=== PATIENT | female | born 1935 | race Caucasian/White ===

== ENCOUNTER → 2016-09-19 | Outpatient (CLI) | payer MEDICARE | END | disposition home or self-care (01) | LOC: PCVCCLINIC 12:19 | PROVIDERS: ATTEND Internal Medicine | DX: I25.10 Atherosclerotic heart disease of native coronary artery without angina pectoris (principal); E78.00 Pure hypercholesterolemia, unspecified | CPT/HCPCS: 80061 ==

== ENCOUNTER → 2016-11-30 | Outpatient (CLI) | payer MEDICARE | END | disposition home or self-care (01) | LOC: PCVCCLINIC 09:40 | PROVIDERS: ATTEND Internal Medicine | DX: I25.10 Atherosclerotic heart disease of native coronary artery without angina pectoris (principal); I50.9 Heart failure, unspecified; I42.9 Cardiomyopathy, unspecified; I48.91 Unspecified atrial fibrillation; E78.5 Hyperlipidemia, unspecified; Z79.01 Long term (current) use of anticoagulants | CPT/HCPCS: 80061; 93005; G0463 ==

== ENCOUNTER → 2017-12-08 | Outpatient (CLI) | payer MEDICARE | END | disposition home or self-care (01) | LOC: PCVCIMAG 08:45 | DX: I65.23 Occlusion and stenosis of bilateral carotid arteries (principal); I25.10 Atherosclerotic heart disease of native coronary artery without angina pectoris; I48.2 Chronic atrial fibrillation; E78.5 Hyperlipidemia, unspecified; F17.210 Nicotine dependence, cigarettes, uncomplicated; Z79.899 Other long term (current) drug therapy; Z98.890 Other specified postprocedural states | CPT/HCPCS: 80061; 93005; 93880; G0463 ==

== ENCOUNTER → 2018-06-12 | Outpatient (CLI) | payer MEDICARE | END | disposition home or self-care (01) | LOC: PCVCCLINIC 10:31 | PROVIDERS: ATTEND Internal Medicine | DX: I25.10 Atherosclerotic heart disease of native coronary artery without angina pectoris (principal); I48.2 Chronic atrial fibrillation; I65.23 Occlusion and stenosis of bilateral carotid arteries; E78.5 Hyperlipidemia, unspecified; I71.4 Abdominal aortic aneurysm, without rupture; F17.210 Nicotine dependence, cigarettes, uncomplicated; Z98.890 Other specified postprocedural states | CPT/HCPCS: 80061; 93005; G0463 ==

== ENCOUNTER → 2018-06-14 | Outpatient (CLI) | payer MEDICARE ==
--- NOTE | 2018-06-14 12:43 | PCVCIMAG ---
EXAM: AORTOILIAC DUPLEX INDICATION: Peripheral arterial disease FINDINGS: AORTA: Suprarenal aorta measures maximum diameter of 2.9 cm. There is a fusiform infrarenal aortic aneurysm. The infrarenal aorta measures maximum diameter of 4.9 x 5.5 cm. No aortic stenosis. RIGHT COMMON ILIAC ARTERY: Maximum diameter is 1.2 cm. No significant stenosis. RIGHT EXTERNAL ILIAC ARTERY: No significant stenosis. LEFT COMMON ILIAC ARTERY: Maximum diameter is 1.4 cm. No significant stenosis. LEFT EXTERNAL ILIAC ARTERY: No significant stenosis. IMPRESSION: 5.5 cm infrarenal abdominal aortic aneurysm. LOC:[id number]
== END | disposition home or self-care (01) ==
LOC: PCVCIMAG 11:31
PROVIDERS: ATTEND Internal Medicine
DX: I71.4 Abdominal aortic aneurysm, without rupture (principal); I73.9 Peripheral vascular disease, unspecified
CPT/HCPCS: 93978

== ENCOUNTER → 2018-09-11 | Outpatient (CLI) | payer MEDICARE ==
--- NOTE | 2018-09-11 09:56 | PCVCIMAG ---
EXAM: AORTOILIAC DUPLEX INDICATION: Abdominal aortic aneurysm. FINDINGS: AORTA: Suprarenal aorta measures maximum diameter of 2.8 cm. There is a fusiform infrarenal aortic aneurysm. The infrarenal aorta measures maximum diameter of 5.2 x 5.3 cm. No aortic stenosis. RIGHT COMMON ILIAC ARTERY: Maximum diameter is 1.4 cm. No significant stenosis. RIGHT EXTERNAL ILIAC ARTERY: No significant stenosis. LEFT COMMON ILIAC ARTERY: Maximum diameter is 1.3 cm. No significant stenosis. LEFT EXTERNAL ILIAC ARTERY: No significant stenosis. IMPRESSION: 5.3 cm infrarenal abdominal aortic aneurysm is similar to May 2018 study. Further evaluation with CTA of the abdomen and pelvis is suggested. Incidental note is made of mild to moderate amount of perihepatic ascites with question of nodular hepatic contour raising concern for underlying liver disease. Please correlate clinically. LOC:[id number]
== END | disposition home or self-care (01) ==
LOC: PCVCIMAG 08:37
PROVIDERS: ATTEND Internal Medicine
DX: I71.4 Abdominal aortic aneurysm, without rupture (principal)
CPT/HCPCS: 93978

== ENCOUNTER → 2018-09-14 | Outpatient (CLI) | payer MEDICARE ==
[~2018-09-14] MED LIST: REGADENOSON 0.4 MG/5 ML DISP.SYRIN. IV ONE
--- NOTE | 2018-09-14 17:12 | PCVCIMAG ---
APPROVED REPORT Imaging Protocol: Rest Tc-99m/Stress Tc-99m 1 day Study performed: 09/14/2018 09:28:29 Indication: Atrial Fibrillation, CAD Patient Location: Out-Patient Stress Nurse: Kimberli Arias RN, Leisa Agosto RN [place] Tech:Lilly Orlando [facility] Ht: 5 ft 6 in Wt: 139 lbs BSA: 1.71 m2 HR: 103 bpm BP: 113/65 mmHg BMI: 22.4 Rhythm: Atrial Fibrillation Medical History Medical History: HTN, Hyperlipidemia, CKD, CVD, Current Smoker, Atrial Fibrillation Medications: Atenolol, Cardeizem, Crestor, Demadex, Eliquis Allergies: Many - none relevant to this exam Cardiac Risk Factors: Age Previous Cardiac Procedures: CABG Pretest Chest Pain Characteristics: No chest pain Exercise History: Physically active Resting Data Rest SPECT myocardial perfusion imaging was performed in supine position 45 minutes following the intravenous injection of 10.3 mCi of Tc-99m Sestamibi. Time of rest injection: 0900 Date: 09/14/2018 Administration Route: IV Administration Site: Right Arm Pharmacologic Stress Pharmacologic stress test was performed by injecting Regadenoson 0.4 mg IV push over 10-15 seconds immediately followed by the intravenous injection of 33.4 mCi of Tc-99m Sestamibi. Time of stress injection: 1030 Date: 09/14/2018 Administration Route: IV Administration Site: Right Arm Heart Rate at time of stress injection: 45 bpm. The images were gated to evaluate regional wall motion and calculate left ventricular ejection fraction. Stress Test Details Stress Test: Pharmacologic stress testing performed using 0.4 mg of regadenoson per 5 mL given IV over 10 seconds. Reason for pharmacologic stress test: back and hip issues. HRMax Heart Rate (APMHR): 138 bpm Resting HR: 103 bpmTarget HR (85% APMHR): 117 bpm Max HR Achieved: 113 bpm % of APMHR: 81 Recovery HR: 108 bpm BP Resting BP: 113/65 mmHg Max BP: 125/72 mmHg Recovery BP: 110/661 mmHg ECG Resting ECG: Atrial Fibrillation Stress ECG: Atrial Fibrillation ST Change: None Maximum ST Deviation: 0 mm Arrhythmia: Atrial fibrillation Recovery ECG: Atrial Fibrillation Recovery ST Change: None Recovery ST Deviation: 0 mm Recovery Arrhythmia: Atrial Fibrillation Clinical Reason for Termination: Completed protocol Stress Symptoms: Abdominal discomfort Exercise duration: 0 min 55 sec Symptoms resolved with caffeine. Stress ECG Conclusion ECG: Non-ischemic Clinical: Non-ischemic Study Quality Study: Good Study Data Post stress, the left ventricular ejection was 48%.. SSS: 9 SRS: 1 SDS: 8 TID = 1.06. 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 Post stress, the left ventricular ejection was 48%. Interpreted by: Maurilio Harry MD Electronically Approved: 09/14/2018 13:32:24 <Conclusion> ECG: Non-ischemic Clinical: Non-ischemic
== END | disposition home or self-care (01) ==
LOC: PCVCIMAG 08:49
PROVIDERS: ATTEND Internal Medicine
DX: I25.10 Atherosclerotic heart disease of native coronary artery without angina pectoris (principal); I48.2 Chronic atrial fibrillation; Q21.1 Atrial septal defect; I65.23 Occlusion and stenosis of bilateral carotid arteries; E78.5 Hyperlipidemia, unspecified; I71.4 Abdominal aortic aneurysm, without rupture; E78.00 Pure hypercholesterolemia, unspecified; K76.9 Liver disease, unspecified; F17.210 Nicotine dependence, cigarettes, uncomplicated; Z98.890 Other specified postprocedural states
CPT/HCPCS: 78452; 93005; 93017; A9500; G0463; J2785

== ENCOUNTER → 2018-09-21 | Outpatient (CLI) | payer MEDICARE | END | disposition home or self-care (01) | LOC: PCVCCLINIC 11:12 | PROVIDERS: ATTEND Internal Medicine | DX: I25.10 Atherosclerotic heart disease of native coronary artery without angina pectoris (principal); I48.2 Chronic atrial fibrillation; E78.5 Hyperlipidemia, unspecified; E78.00 Pure hypercholesterolemia, unspecified; F17.200 Nicotine dependence, unspecified, uncomplicated; Z98.890 Other specified postprocedural states | CPT/HCPCS: 36415 ==

== ENCOUNTER → 2018-10-15 | Outpatient (CLI) | payer MEDICARE ==
[~2018-10-15] MED LIST changes: +DIAZEPAM 10 MG TABLET. ONE; +HEPARIN for ARTERIAL LINE 1,500 ML ONE; +IOHEXOL 300 MG/ML 100ML VIAL. ONE; +IOHEXOL 350 MG/ML 100 ML VIAL. ONE; +IV NORMAL SALINE 1000ML BAG 1,000 ML ONE; +LIDOCAINE 1%/EPI 1:100,000 20 ML VIAL. ONE; +MIDAZOLAM HCL/PF 2 MG/2 ML VIAL. ONE; -REGADENOSON 0.4 MG/5 ML DISP.SYRIN. IV ONE; +fentaNYL PF VIAL 100 MCG/2 ML VIAL ONE
--- NOTE | 2018-10-15 15:06 | PCVCINTER ---
APPROVED REPORT Study performed: 10/15/2018 12:05:48 Patient Details Patient Status: Out-Patient Room #: 2 The patient is a 83 year-old Female Event Personnel Suyapa Balderas MD, Brandon Trejo RT(R)(), Jordan Simpson RT(R), Gabriel Ambrocio RN Risk Factors Arterial HypertensionDysplipidemia (Type: 0), Cerebrovascular Disease, Hypercholesterolemia, Last Creatanine 0.8Tobacco History (Current/Recent(w/in 1 year)) Previous Procedures/Diagnoses Previous CABG, Previous CHFPrevious Vascular Surgery, CAD, LV dysfunction, Liver disease, Cerebrovascular disease, Arrhythmias - Supraventricular tachycardias->Permanent AF Procedure Narrative A 6F sheath was inserted into the right femoral artery. Coronary angiography was performed using coronary diagnostic catheters. The right coronary system was accessed and visualized with a JR4 catheter. The left coronary system was accessed and visualized with a JL4 catheter. The left ventricle was accessed and visualized with a Angled Pigtail catheter. Left ventricular/Aortic Valve gradient assessed via catheter pullback. Left ventriculogram was performed in STRAUSS projection. Hemostasis was obtained with manual pressure following sheath removal without any complications. The patient tolerated the procedure well and there were no complications associated with the procedure. There was no hematoma. Coronary Angiography The patient's coronary anatomy is right dominant. Diagnostic Cath Left MainMild 10-20% proximal left main plaquing DFB24-64% proximal LAD stenosis Mild distal LAD plaquing. 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 Right Wiztldeq92% proximal right coronary stenosis. Mid vessel right coronary artery occlusion R PDAWidely patent vein graft to the posterior descending branch. Both proximal and distal anastomotic sites were widely patent. RPLVOccluded posterolateral branch with left to right collateralization. Occluded vein graft to the posterolateral branch Left Ventriculography The left ventricle is mildly dilated in size with abnormal contractility. The left ventricular ejection fraction is estimated to be 45-50%. Left ventricular wall motion abnormalities are present. There is no mitral insufficiency. Inferobasal aneurysm. Mild left ventricular dysfunction. Hemodynamics The aortic pressure is 106/57 mmHg with a mean of mmHg. The left ventricular pressure is 106/13 mmHg with a mean of 16 mmHg. Conclusion 1. Mild left ventricular dysfunction with inferobasal aneurysm 2. Severe two-vessel coronary disease. 3. Severe 85-90% proximal LAD stenosis. 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 Mild nondominant circumflex disease. 5. Severe right coronary disease with widely patent vein graft to the posterior descending branch. 6. Occluded posterolateral branch with [id number] collateralization. Occluded vein graft to the posterolateral branch
--- NOTE | 2018-10-15 18:32 | PCVCINTER ---
EXAM: 1. AORTOGRAM AND BILATERAL ILIOFEMORAL ANGIOGRAPHY 2. BILATERAL RENAL ANGIOGRAPHY 3. COMPLETE MESENTERIC ANGIOGRAPHY 4. INFERIOR MESENTERIC ARTERY COIL EMBOLIZATION INDICATION: Abdominal aortic aneurysm. Pre stent graft operative planning. Hypertension. Renal atherosclerosis. PROCEDURE: Procedure and risks of the procedures listed above were discussed with the patient and consent obtained. Risks including but not limited to bleeding, infection, stroke, vascular injury, neurologic injury, embolization, allergic reactions, bowel ischemia requiring resection, and contrast-induced nephropathy requiring dialysis were discussed as appropriate and consent obtained. Patient was placed on the angiography table. IV conscious sedation was used throughout procedure with appropriate monitoring from 10:30 AM through 12:00 PM. The right groin was prepped and draped in the normal sterile fashion. Ultrasound was used to interrogate the right groin and demonstrate the right common femoral artery. An ultrasound image was saved. Under ultrasound guidance a 21 gauge needle was used to gain access into the right common femoral artery and a 5F vascular sheath was placed. Catheter was placed into the suprarenal abdominal aorta and abdominal aortic angiogram performed. Catheter was placed into the distal abdominal aorta and bilateral iliofemoral angiography performed. Catheter was placed into the right renal arteries and right renal angiograms performed. Catheter was placed into the left renal arteries and left renal angiograms performed. Catheter was placed into the celiac axis and celiac angiogram performed. Catheter was placed in the superior mesenteric artery and SMA angiogram performed. Catheter was placed into the inferior mesenteric artery and ESTELLE angiogram performed. In a coaxial fashion a microcatheter was placed into the proximal portion of the inferior mesenteric artery. Coil embolization in the proximal segment of the inferior mesenteric artery was carried out in the usual manner. Post embolization angiogram was performed. ESTELLE coil embolization was carried out because of the ESTELLE being a potential source of endoleak following stent graft repair of the aortic aneurysm. Dr. Dale joined the procedure and he performed coronary angiography. Please see his separate dictation for details. Catheters and wires removed. Sheath was removed and hemostasis obtained using the FISH device. No immediate complications. FINDINGS: Aortogram: There is one right and one left renal artery. Approximately 1.4 cm below the lowest renal artery a fusiform aneurysm is present. This ends above the aortic bifurcation. Bilateral iliofemoral angiography: The right common iliac artery is normal in caliber until its distal portion where there is an aneurysm measuring up to 2.2 cm in luminal diameter. The right internal and external iliac arteries are patent. There is ectasia of the mid/distal left common iliac artery measuring up to 1.6 cm luminal diameter. The left internal and external iliac arteries are patent. The right and left common femoral and profunda femoral arteries are patent bilaterally as are the visualized portions of the upper superficial femoral arteries. Right renal artery: Moderate plaque proximal vessel causes minimal stenosis. Left renal artery: Mild plaque proximal portion does not cause significant stenosis. Celiac axis: Moderate plaque proximal vessel causes 40% stenosis not felt be flow-limiting. Distal branches are patent. Superior mesenteric artery: Mild plaque proximal vessel does not cause significant stenosis. Superior mesenteric artery and its branches show good patency. No abnormal collateral vessels. Inferior mesenteric artery: 90% stenosis at the origin of this vessel. No branch vessel stenosis. Following coil embolization there is good position of the coils in the proximal segment of the inferior mesenteric artery. IMPRESSION: Fusiform infrarenal abdominal aortic aneurysm as described with aneurysmal dilatation distal right common iliac artery and ectasia mid/distal left common iliac artery. Satisfactory coil embolization proximal inferior mesenteric artery. LOC:[id number] [id number]
== END | disposition home or self-care (01) ==
LOC: PCVCINTER 09:56
PROVIDERS: ATTEND Internal Medicine
DX: I71.4 Abdominal aortic aneurysm, without rupture (principal); I70.1 Atherosclerosis of renal artery; I25.10 Atherosclerotic heart disease of native coronary artery without angina pectoris; I72.4 Aneurysm of artery of lower extremity; I48.91 Unspecified atrial fibrillation; I42.9 Cardiomyopathy, unspecified; K55.1 Chronic vascular disorders of intestine; I11.0 Hypertensive heart disease with heart failure; I50.9 Heart failure, unspecified; E78.00 Pure hypercholesterolemia, unspecified; Z90.49 Acquired absence of other specified parts of digestive tract; Z90.710 Acquired absence of both cervix and uterus; Z95.1 Presence of aortocoronary bypass graft; Z98.890 Other specified postprocedural states; Z82.49 Family history of ischemic heart disease and other diseases of the circulatory system; F17.210 Nicotine dependence, cigarettes, uncomplicated; Z88.5 Allergy status to narcotic agent; Z88.0 Allergy status to penicillin; Z88.2 Allergy status to sulfonamides; Z88.8 Allergy status to other drugs, medicaments and biological substances; Z79.899 Other long term (current) drug therapy; Z79.01 Long term (current) use of anticoagulants
CPT/HCPCS: 36245; 36252; 37242; 75630; 75726; 76937; 93459; 99152; 99153; C1751; C1769; C1887; C1894; J1644; J2250; J3010; J3490; J7030; Q9967

== ENCOUNTER → 2018-10-25 | Outpatient (CLI) | payer MEDICARE | END | disposition home or self-care (01) | LOC: PCVCCLINIC 11:35 | PROVIDERS: ATTEND Internal Medicine | DX: I25.10 Atherosclerotic heart disease of native coronary artery without angina pectoris (principal); I48.2 Chronic atrial fibrillation; Q21.1 Atrial septal defect; I65.23 Occlusion and stenosis of bilateral carotid arteries; E78.5 Hyperlipidemia, unspecified; I71.4 Abdominal aortic aneurysm, without rupture; K76.9 Liver disease, unspecified; E78.00 Pure hypercholesterolemia, unspecified; F17.210 Nicotine dependence, cigarettes, uncomplicated; Z98.890 Other specified postprocedural states | CPT/HCPCS: G0463 ==

== ENCOUNTER → 2018-12-10 | Outpatient (CLI) | payer MEDICARE | END | disposition home or self-care (01) | LOC: PCVCCLINIC 14:00 | PROVIDERS: ATTEND Internal Medicine | DX: I25.10 Atherosclerotic heart disease of native coronary artery without angina pectoris (principal); I48.2 Chronic atrial fibrillation; Q21.1 Atrial septal defect; I65.23 Occlusion and stenosis of bilateral carotid arteries; E78.5 Hyperlipidemia, unspecified; I71.4 Abdominal aortic aneurysm, without rupture; K76.9 Liver disease, unspecified; E78.00 Pure hypercholesterolemia, unspecified; F17.210 Nicotine dependence, cigarettes, uncomplicated; Z98.890 Other specified postprocedural states | CPT/HCPCS: 36415; 80061; 93005; G0463 ==

== ENCOUNTER → 2019-03-21 | Outpatient (CLI) | payer MEDICARE | END | disposition home or self-care (01) | LOC: PCVCCLINIC 11:00 | PROVIDERS: ATTEND Internal Medicine | DX: I25.10 Atherosclerotic heart disease of native coronary artery without angina pectoris (principal); I48.2 Chronic atrial fibrillation; I65.23 Occlusion and stenosis of bilateral carotid arteries; E78.5 Hyperlipidemia, unspecified; I71.4 Abdominal aortic aneurysm, without rupture; K76.9 Liver disease, unspecified; Q21.1 Atrial septal defect; Z98.890 Other specified postprocedural states; Z88.0 Allergy status to penicillin; Z88.1 Allergy status to other antibiotic agents; Z88.6 Allergy status to analgesic agent; Z88.8 Allergy status to other drugs, medicaments and biological substances | CPT/HCPCS: G0463 ==

== ENCOUNTER → 2019-06-25 | Outpatient (CLI) | payer MEDICARE | END | disposition home or self-care (01) | LOC: PCVCCLINIC 14:18 | PROVIDERS: ATTEND Internal Medicine | DX: I25.10 Atherosclerotic heart disease of native coronary artery without angina pectoris (principal); I48.21 Permanent atrial fibrillation; R94.31 Abnormal electrocardiogram [ECG] [EKG]; Q21.1 Atrial septal defect; I65.23 Occlusion and stenosis of bilateral carotid arteries; E78.5 Hyperlipidemia, unspecified; I71.4 Abdominal aortic aneurysm, without rupture; K76.9 Liver disease, unspecified; F17.210 Nicotine dependence, cigarettes, uncomplicated; E78.00 Pure hypercholesterolemia, unspecified; Z88.8 Allergy status to other drugs, medicaments and biological substances; Z98.890 Other specified postprocedural states; Z79.899 Other long term (current) drug therapy | CPT/HCPCS: 36415; 80061; 93005; G0463 ==